=== PATIENT | male | born 2000 | race African-American/Black ===

== ENCOUNTER 2021-08-08 12:52 | Emergency (ER) | payer SELFPAY ==
[~2021-08-08] VITALS: Ht 180.3 cm; Wt 63.6 kg
[~2021-08-08 12:52] MED LIST: ALBU2.5V14
[2021-08-08 13:02] VITALS: BP 140/90
[2021-08-08] MEDS ORDERED: DEXAMETHASONE 4 MG TABLET PO ONE (13:30)
--- NOTE | 2021-08-08 13:32 | PHYS DOC ---
Past Medical History Past Medical History: Asthma Additional Past Medical Histor: mild scoliosis Past Surgical History: No Surgical History Smoking Status: Never Smoker Alcohol Use: None Drug Use: None General Adult EDM: Chief Complaint: EARACHE/EAR PAIN HPI: HPI: Patient is a 21 year old male who presents with right ear muffled hearing and feeling as though something is in the ear. States he is felt like that for the last week. He states when he yawns the ear will pop at times. He has had a recent upper respiratory illness. He states he been taking DayQuil and NyQuil. He denies any pain. History of asthma and scoliosis. Denies chest pain, shortness of breath, dizziness, cough, drainage from the ear, abdominal pain, nausea, vomiting or diarrhea. Review of Systems: Review of Systems: Constitutional: Denies fever or chills. [] Eyes: Denies change in visual acuity. [] HENT: Denies nasal congestion or sore throat. + Right ear muffled hearing [] Respiratory: Denies cough or shortness of breath. [] Cardiovascular: Denies chest pain or edema. [] GI: Denies abdominal pain, nausea, vomiting, bloody stools or diarrhea. [] : Denies dysuria. [] Musculoskeletal: Denies back pain or joint pain. [] Integument: Denies rash. [] Neurologic: Denies headache, focal weakness or sensory changes. [] Endocrine: Denies polyuria or polydipsia. [] Lymphatic: Denies swollen glands. [] Psychiatric: Denies depression or anxiety. [] Heart Score: C/O Chest Pain: No Risk Factors: Risk Factors: DM, Current or recent (<one month) smoker, HTN, HLP, family history of CAD, obesity. Risk Scores: Score 0 - 3: 2.5% MACE over next 6 weeks - Discharge Home Score 4 - 6: 20.3% MACE over next 6 weeks - Admit for Clinical Observation Score 7 - 10: 72.7% MACE over next 6 weeks - Early Invasive Strategies Allergies: Allergies: Allergies Coded Allergies Type Severity Reaction Last Updated Verified No Known Drug Allergies 10/01/13 No Physical Exam: PE: Constitutional: Well developed, well nourished, no acute distress, non-toxic appearance. [] HENT: Normocephalic, atraumatic, bilateral external ears normal, oropharynx moist, no oral exudates, nose normal. Right eardrum pink with fluid behind it. Tympanic intact. Nasal congestion. [] Eyes: PERRLA, EOMI, conjunctiva normal, no discharge. [] Neck: Normal range of motion, no tenderness, supple, no stridor. [] Cardiovascular:Heart rate regular rhythm, no murmur [] Lungs & Thorax: Bilateral breath sounds clear to auscultation [] Abdomen: Bowel sounds normal, soft, no tenderness, no masses, no pulsatile masses. [] Skin: Warm, dry, no erythema, no rash. [] Back: No tenderness, no CVA tenderness. [] Extremities: No tenderness, no cyanosis, no clubbing, ROM intact, no edema. [] Neurologic: Alert and oriented X 3, normal motor function, normal sensory function, no focal deficits noted. [] Psychologic: Affect normal, judgement normal, mood normal. [] Current Patient Data: Vital Signs: Vital Signs Date Time Temp Pulse Resp B/P (MAP) Pulse Ox O2 Delivery O2 Flow Rate FiO2 08/08/21 13:02 98.1 77 18 140/90 (107) 97 Room Air 98.1 EKG: EKG: [] Radiology/Procedures: Radiology/Procedures: [] Course & Med Decision Making: Course & Med Decision Making Pertinent Labs and Imaging studies reviewed. (See chart for details) See HPI. Alert and oriented x4. Steady gait. Speaks in full clear sentences. Throat is pink without exudates. Some nasal congestion present. No sinus pressure with palpation. Lungs are clear stational lungs. Right ear is slightly reddened but eardrum is not infected. there is fluid behind the eardrum. No infection at this time. Patient is given a dose of dexamethasone in the ED. He is to start taking Zyrtec for any antihistamine [id number]. [] Dragon Disclaimer: Dragon Disclaimer: This electronic medical record was generated, in whole or in part, using a voice recognition dictation system. Departure Departure Impression: Primary Impression: Right ear pain Disposition: HOME / SELF CARE / HOMELESS Condition: STABLE Referrals: NON,STAFF (PCP) Patient Instructions: Medical Screening Exam Additional Instructions: Follow-up with primary care provider. Drink plenty of fluids. Take an antihistamine such as Zyrtec or Claritin to help dry up the fluid. Return for h igh fever or pain. DOMINICK REY APRN Aug 08, 2021 13:32
== END 2021-08-08 14:05 | disposition home or self-care (01) ==
LOC: ER 12:52
DX: H92.01 Otalgia, right ear (principal); J45.901 Unspecified asthma with (acute) exacerbation
CPT/HCPCS: 99283